=== PATIENT | female | born 1965 | race Caucasian/White ===

== ENCOUNTER → 2019-04-27 | Outpatient (CLI) | payer MEDICAID | END | disposition home or self-care (01) | LOC: CFH 08:18 | PROVIDERS: ATTEND Internal Medicine Gastroenterology | DX: M81.8 Other osteoporosis without current pathological fracture (principal); K59.00 Constipation, unspecified; R11.0 Nausea; K74.3 Primary biliary cirrhosis; Z12.11 Encounter for screening for malignant neoplasm of colon; M79.7 Fibromyalgia | CPT/HCPCS: 76700; 77080 ==